=== PATIENT | female | born 1940 | race Two or more races ===

== ENCOUNTER 2018-12-26 10:36 | Emergency (ER) | payer OTHER ==
[~2018-12-26] VITALS: Ht 154.9 cm; Wt 68.9 kg
[2018-12-26] MEDS ORDERED: cloNIDine HCL 0.1 MG TAB PO ONE (11:15)
[2018-12-26 12:18] VITALS: BP 160/84
== END 2018-12-26 12:28 | disposition home or self-care (01) ==
LOC: ER 10:36
DX: R04.0 Epistaxis (principal); I16.0 Hypertensive urgency; I10 Essential (primary) hypertension; R51 Headache; E78.5 Hyperlipidemia, unspecified; Z86.73 Personal history of transient ischemic attack (TIA), and cerebral infarction without residual deficits
CPT/HCPCS: 93005